=== PATIENT | female | born 1990 | race Caucasian/White ===

== ENCOUNTER 2016-09-08 10:38 | Emergency (ER) | payer MEDICAID ==
[~2016-09-08] VITALS: Ht 160 cm; Wt 64.1 kg
[~2016-09-08 10:38] MED LIST: ACET325T51 PO; IBUP-1724 PO; MEDR150V SQ; PREN1TAB75 PO
[2016-09-08 10:40] VITALS: Ht 160 cm; Wt 64.1 kg
--- OUTSIDE RECORDS SUMMARY | 2016-09-08 10:42 | XMS REPORT | Continuity of Care Document ---
Author Author [facility] Organization [facility] Address Unknown Phone Unavailable Care Team Providers Care Sap Hana Developer Name Role Phone HODA FERRARI MD Primary Care Physician [phone] Insurance Providers Guarantor Jayleen Marin Address [address] [place] [address] Email [email or web address] Payer [facility] Community Plan Policy Number [id number] Subscriber's Name MarinJayleen horton Jodee Relationship 18 Self Effective Date 16 Expiration Date 16 Payer Auto A Insurance Subscriber's Name MarinJayleen Jodee Relationship 18 Self Advance Directives Directive Response Recorded Date/Time Advanced Directives Type None 06/08/16 6:57pm Chief Complaint and Reason for Visit Chief Complaint Upper Extremity Injury Reason for Visit Contusion, hand Problems Active Problems Medical Problem Onset Date Status Acute URI Unknown Acute Acute thoracic myofascial strain Unknown Acute Colitis due to Escherichia coli Unknown Acute Costochondritis Unknown Acute Costochondritis Unknown Acute Dehydration Unknown Acute Frequent urination Unknown Acute Infectious mononucleosis Unknown Acute Infectious mononucleosis Unknown Acute Intrauterine growth restriction, antepartum 03/05/2014 Acute Irregular menses Unknown Acute Lumbar pain Unknown Acute Lumbar strain Unknown Acute Muscle strain of forearm Unknown Acute Pelvic pain affecting in first trimester, antepartum Unknown Acute Unknown Acute Sacro-iliac pain Unknown Acute Status post normal vaginal delivery Unknown Travelers' diarrhea Unknown Acute Upper respiratory infection Unknown Acute Past Problems Medical Problem Onset Date Ankle pain, right Unknown Cellulitis Unknown Contusion, hand Unknown Dental abscess Unknown Dental infection Unknown Foot pain, left Unknown Hand injury Unknown Hand sprain Unknown Pain, dental Unknown Sprain of right little finger Unknown Strain of shoulder, right Unknown Medications Current Home Medications Medication Dose Units Route Directions Days Qty Instructions Start Date Acetaminophen 325 Mg Tablet 2 Tab Oral Every 6 Hours as needed for Pain 06/08/16 Ibuprofen 200 Mg Tablet 2 Tab Oral Every 4 Hours as needed for Pain 06/08/16 Medroxyprogesterone Acetate (Depo-Provera) 150 Mg/1 Ml Vial 1 Ml Sub-Q Every 3 Minutes 02/05/16 Vits W-Ca,Fe,Fa(<1MG) ( Formula) 1 Each Tablet 1 Tab Oral Daily 03/03/15 Past Home Medications Medication Directions Ordered Status Cyclobenzaprine Hcl 10 Mg Tablet, 10 Mg Oral Three Times A Day as needed for Muscle Spasm 12/26/14 Discontinued Cyclobenzaprine Hcl 10 Mg Tablet, 1 Tab Oral Three Times A Day for Muscle Spasm 01/09/15 Discontinued Diclofenac Sodium 75 Mg Tablet.dr, 75 Mg Oral Twice Daily With Meals Discontinued Diclofenac Sodium 75 Mg Tablet.dr, 1 Tab Oral Twice A Day Breakfast & Supper 01/09/15 Discontinued Lortab , Oral As Needed 07/11/11 Discontinued Naproxen Sodium (Aleve) 220 Mg Tablet, 220 Mg Oral As Needed 07/11/11 Discontinued Social History Social History Problem Response Recorded Date/Time Onset Date Status Hx Substance Use No 06/08/2016 6:57pm Not Applicable Not Applicable Hx Alcohol Use N DENIES SINCE 12/201406/08/2016 6:57pm Not Applicable Not Applicable Has the pt used tobacco in the last 12 months No 10/09/2015 2:28am Not Applicable Not Applicable Tobacco Usage none 06/14/2014 8:54pm Not Applicable Not Applicable Query Response Start Date Stop Date Smoking Status Never smoker Hospital Discharge Instructions No hospital discharge instructions. Plan of Care Discharge Date 06/08/16 7:47pm Disposition 01 DISCHARGED HOME, SELF-CARE Condition at Discharge Improved Instructions/Education Provided Contusion in Adults (ED) Prescriptions See Medication Section Referrals HODA FERRARI MD Order Date: 1 Week Address: [address] [place] [address] Note: PORFIRIO MUNGUIA APRN Address: [address] [place] [address] [phone] Note: Additional Instructions/Education You have a bruised hand. Use ice, tylenol, and motrin as needed for pain. Follow up with your doctor next week. Care Plan and Goals Physician Care Plan Problem: Hand contusion Goal: Follow up with primary care provider Instructions: Take medications and follow care plan as discussed/written Functional Status No functional status results. Allergies, Adverse Reactions, Alerts Allergen Type Severity Reaction Status Last Updated Peanuts Allergy Unknown Active 06/08/16 Immunizations Query Response on File Recorded Date/Time Hx Influenza Vaccination Y 03/29/15 04/17/15 7:10pm Hx Pneumococcal Vaccination No 04/17/15 7:10pm Hx Tetanus, Diptheria, Pertussis Y 02/10/2014 01/27/15 3:01am Hx Influenza Vaccination Y 03/29/15 04/17/15 7:10pm Hx Tetanus Diptheria No 10/31/15 9:38pm Hx Tetanus, Diptheria, Pertussis Y 02/10/2014 01/27/15 3:01am Hx Tetanus Toxoid Vaccination No 10/31/15 9:38pm Influenza Vaccine Hx 05/201506/08/16 6:57pm Tdap Vaccine Hx UTD PER PT 04/07/16 10:45pm Vital Signs Acute Vital Signs Vital Response Date/Time Temperature (Fahrenheit) 98.3 deg F (96.8 - 99.1) 06/08/2016 7:47pm Temperature (Calculated Celsius) 36.27071 degrees C (36.0 - 37.3) 06/08/2016 7:47pm Pulse Rate (adult) 92 bpm (60 - 100) 06/08/2016 7:47pm Respiratory Rate 20 breaths/min (10 - 20) 06/08/2016 7:47pm O2 Sat by Pulse Oximetry 97 % (90 - 100) 06/08/2016 7:47pm Blood Pressure 109/63 mm Hg 06/08/2016 7:47pm Height (Feet) 5 feet 06/08/2016 6:57pm Height (Inches) 3.00 inches 06/08/2016 6:57pm Weight (Kilograms) 59.700 kg 06/08/2016 6:57pm Body Mass Index (BMI) 23.0 06/08/2016 6:57pm Results No known relevant diagnostic tests, laboratory data and/or discharge summary. Procedures Procedure Status Date Provider(s) X-ray exam of ankle Completed 04/07/16 Emergency dept visit Completed 04/07/16 Encounters Encounter Location Arrival/Admit Date Discharge/Depart Date Attending Provider Departed Emergency Room [facility] 06/08/16 6:52pm 06/08/16 7: 47pm SEPTEMBERSHANTI DO Departed Emergency Room [facility] 04/07/16 10:30pm 04/07/16 11: 08pm YESENIA TOLEDO MD Recent Diagnosis
--- NOTE | 2016-09-08 10:48 | NUR ---
PHYSICIAN VISIT DR. MARTINEZ IN TO SEE PATIENT.
--- NOTE | 2016-09-08 10:56 | NUR ---
X-RAY X-RAY AT BEDSIDE TO PERFORM PORTABLE.
--- NOTE | 2016-09-08 10:59 | ERPDOC ---
Departure Disposition Decision Date: Sep 08, 2016 Disposition Decision Time: 11:07 Disposition: 01 DISCHARGED HOME, SELF-CARE Impression Impression: 1) ANKLE SPRAIN 2) FALL Impression: Primary Impression: Ankle sprain Encounter type: initial encounter Involved ligament of ankle: unspecified ligament Laterality: right Qualified Codes: S93.401A - Sprain of unspecified ligament of right ankle, initial encounter Condition: Stable Seen By: Physician only Referrals: HODA FERRARI MD (PCP) PORFIRIO MUNGUIA APRN (Family) 2 Weeks FOLLOW UP IN NEXT 1-2 WEEKS FOR RE-EVALUATION IF PAIN PERSISTS Patient Instructions: Ankle Sprain (ED) Problems/Meds/Labs Reviewed?: Yes Medications reviewed and manag: Yes Additional Instructions: 1) CONTINUE TO ICE AND ELEVATE INJURED ANKLE FOR NEXT 24 HOURS. 2) UTILIZE AIR SPLINT AND CRUTCHES TO PROVIDE SUPPORT AND HELP WITH PAIN WITH WEIGHT BEARING FOR NEXT SEVERAL DAYS. 3) MAY TAKE OVER THE COUNTER ANALGESICS AND ANTI-INFLAMMATORIES SUCH ACETAMINOPHEN OR IBUPROFEN DIRECTED NEEDED FOR DISCOMFORT 4) FOR SEVERE PAIN MAY TAKE TYLENOL #3 5) FOLLOW UP WITH PCP IN NEXT 1-2 WEEKS IF PAIN PERSISTS Departure Forms: Return to Work/School Permit Return to Work/School Date: September 10, 2016 Follow up care ordered?: Yes Mental Status: Alert Scripts Acetaminophen with Codeine (Tylenol with Codeine #3 Tablet) 300-30 Tablet 1 TAB-CAP PO Q6H for PAIN, #20 TAB-CAP 0 Refills Prov: ALFREDITO MARTINEZ MD 09/08/16 HPI General Chief Complaint: Lower Extremity Injury Stated Complaint: FALL/KNEE AND ANKLE PAIN Time Seen by Provider: 10:44 Source: patient Exam Limitations: no limitations HPI Foot/Ankle Initial Comments 25 YO WF who presents to ER for right knee and ankle pain. Patient reportedly missed a step and fell twisting her ankle last night. She now reports pain in her right knee and ankle. No swelling in knee. She has been applying ice to ankle. She has not taken any over the counter analgesics or anti-inflammatory for the pain. Occurred At: home Pain Scale: Now: 5/10 Location: right: ankle 1 - area of pain Method of Injury: fell, twisted Associated Symptoms: pain with standing, swelling Allergies: Coded Allergies: peanut (Verified Allergy, Unknown, 09/08/16) Past History Patient Surgical History epidural Past Medical History Respiratory: asthma Female: kidney stones Surgical History Joint: knee Family History Family PMH: FOUND: [place], diabetes, hypertension, other Vaccines Hx Influenza Vaccination: Yes (03/29/15) Hx Pneumococcal Vaccination: No Hx Tetanus Diptheria: No Hx Tetanus, Diptheria, Pertuss: Yes (02/10/2014) Social History Does patient use chewing tobac: No Second Hand Exposure: No Substance Use Type: does not use Alcohol Intake: none Sexuality: male partner Household Members: family Review of Systems Constitutional Constitutional: DENIES: appetite decrease, chills, dizziness, fever, weakness Eyes General: DENIES: erythema, exudate, photophobia Vision: DENIES: blurring ENMT Sinuses: DENIES: congestion Nose: DENIES: nosebleeds Mouth/Throat: DENIES: painful swallowing, sore throat Cardiovascular Rhythm/Rate: DENIES: irregular beat, palpitations Pulmonary Respiratory: DENIES: dyspnea GI Upper Abdomen: DENIES: nausea, vomiting Lower Abdomen: DENIES: diarrhea General: DENIES: burning, dysuria, frequency, pain, urgency Integumentary Skin: DENIES: rash Neurological General: DENIES: dysarthria, headache, numbness, seizures, syncope, weakness Hematologic/Lymphatic Hematologic/Lymphatic: DENIES: anemia, easy bruising Exam General General Nourishment: well nourished, well developed, appears stated age Vital Signs: RN Vital Signs have been reviewed: Yes Height (Feet): 5 Height (Inches): 3.00 Fastrak Foot/Ankle Foot/Ankle : Leg: Right Leg: NOT FOUND: deformity, discoloration, swelling, tender Ankle: tender lat. foot, tender lat. malleolus, NOT FOUND: anterior drawer sign, decreased ROM, deformity, ecchymosis, foot drop Toes: NOT FOUND: decreased ROM, subungual hematoma Posterior Tibial Pulse: 2+ Dorsalis Pedis Pulse: 2+ Eyes (brief) Eyes Brief: found: EOMI, PERRL, not found: scleral icterus Respiratory (brief) Respiratory Brief: FOUND: clear all stewart, equal bilaterally, NOT FOUND: rales , wheezes Cardiovascular (brief) Cardiac Brief: FOUND: regular rate, regular rhythm, NOT FOUND: pedal edema Capillary Refill: <2 sec Abdomen (brief) Abdominal Brief: FOUND: bowel normo active x4, soft, NOT FOUND: distended, hepatosplenomegaly, tender Integumentary (brief) Integumentary Brief: FOUND: dry, warm, NOT FOUND: rash Neurologic (brief) Neurological Brief: FOUND: CN w/o gross def to obs, motor-no gross deficits, sensory-no gross deficits Neurologic Mental Status: FOUND: alert, oriented GCS Eye Opening: (4)Spontaneous GCS Verbal: (5)Oriented GCS Motor: (6)Obeys Commands RN Documented GCS Eye Opening: Verbal: Motor: Total: Psychiatric (brief) Psychiatric Brief: FOUND: alert, attentive, normal affect, oriented Differential Diagnoses Considering: Contusion, Fracture, Sprain, Strain Progress Results/Orders Orders Procedure Category Date Status Time Ankle Right 3 View RAD 09/08/16 Taken 10:53 Premade Splint EDM 09/08/16 Transmitted 11:06 Crutches EDM 09/08/16 Transmitted 11:06 Xray Xray : Xray: Ankle R (No fracture, dislocation or acute bony abnormality) Interpretation: Interpreted by ALFREDITO Covarrubias MD Sep 08, 2016 10:59
[2016-09-08] MEDS ORDERED: No home meds. (11:02)
[2016-09-08] MEDS ORDERED: ACET1TAB12 PO (11:13)
[2016-09-08 11:45] VITALS: BP 114/75; PULSE 85; RESP 16; TEMP 98.2; O2SAT 98
--- NOTE | 2016-09-08 11:45 | NUR ---
DISCHARGED AMB WELL ON CRUTCHES
--- NOTE | 2016-09-09 09:40 | DI ---
Indication: ITS.REASON: Fall, Lateral ankle pain PROCEDURE: ANKLE RIGHT 3 VIEW: Encounter: Initial Comparison: April 07, 2016 Findings: There is no acute fracture, dislocation or malalignment identified. Impression: No acute osseous abnormality. .
== END 2016-09-08 11:45 | disposition home or self-care (01) ==
LOC: ED 10:38
DX: S93.401A Sprain of unspecified ligament of right ankle, initial encounter (principal); M25.561 Pain in right knee; W10.8XXA Fall (on) (from) other stairs and steps, initial encounter; Y93.9 Activity, unspecified; Y92.008 Other place in unspecified non-institutional (private) residence as the place of occurrence of the external cause; Y99.8 Other external cause status

== ENCOUNTER 2016-09-11 23:16 | Emergency (ER) | payer MEDICAID ==
[~2016-09-11] VITALS: Ht 160 cm; Wt 64.3 kg
[2016-09-11 23:16] VITALS: Ht 160 cm; Wt 64.3 kg
[~2016-09-11 23:16] MED LIST changes: +ACET1TAB12 PO; -ACET325T51 PO; -IBUP-1724 PO; -MEDR150V SQ; +No home meds.; -PREN1TAB75 PO
--- OUTSIDE RECORDS SUMMARY | 2016-09-11 23:19 | XMS REPORT | Continuity of Care Document ---
Author Author [facility] Organization [facility] Address Unknown Phone Unavailable Care Team Providers Care District Court Administrator Name Role Phone HODA FERRARI MD Primary Care Physician [phone] Insurance Providers Guarantor TomasJayleen D Address [address] [place] [address] Email [email or web address] Payer [facility] Community Plan Policy Number [id number] Subscriber's Name Jayleen Nicolas Relationship 18 Self Effective Date 16 Expiration Date 16 Advance Directives Directive Response Recorded Date/Time Advanced Directives Type None 09/08/16 10:40am Chief Complaint and Reason for Visit Chief Complaint Lower Extremity Injury Reason for Visit Ankle sprain Problems Active Problems Medical Problem Onset Date Status Acute URI Unknown Acute Acute thoracic myofascial strain Unknown Acute Ankle sprain Unknown Acute Colitis due to Escherichia coli [...] Directions Days Qty Instructions Start Date Acetaminophen With Codeine (Tylenol With Codeine #3 Tablet) 300-30 Tablet 1 Tab-Cap Oral Every 6 Hours for Pain 20 Tablet-Capsule 09/08/16 No Home Meds. 09/08/16 Past Home Medications Medication Directions Ordered Status Acetaminophen 325 Mg Tablet, 2 Tab Oral Every 6 Hours as needed for Pain Discontinued Cyclobenzaprine Hcl 10 Mg Tablet, 10 Mg [...] A Day Breakfast & Supper 01/09/15 Discontinued Ibuprofen 200 Mg Tablet, 2 Tab Oral Every 4 Hours as needed for Pain Discontinued Lortab , Oral As Needed 07/11/11 Discontinued Medroxyprogesterone Acetate (Depo-Provera) 150 Mg/1 Ml Vial, 1 Ml Sub-Q Every 3 Minutes 02/05/16 Discontinued Naproxen Sodium (Aleve) 220 Mg Tablet, 220 Mg Oral As Needed 07/11/11 Discontinued Vits W-Ca,Fe,Fa(<1MG) ( Formula) 1 Each Tablet, 1 Tab Oral Daily 03/03/15 Discontinued Social History Social History Problem Response Recorded Date/Time Onset Date Status Hx Substance Use No 09/08/2016 10:48am Not Applicable Not Applicable Hx Alcohol Use Y OCCASIONAL 09/08/2016 10:48am Not Applicable Not Applicable Has the pt used tobacco in the last 12 months No 10/09/2015 2:28am Not Applicable Not Applicable Tobacco Usage none 06/14/2014 8:54pm Not Applicable Not Applicable Query Response Start Date Stop Date Smoking Status Never smoker Hospital Discharge Instructions No hospital discharge instructions. Plan of Care Discharge Date 09/08/16 11:45am Disposition 01 DISCHARGED HOME, SELF-CARE Condition at Discharge Stable Instructions/Education Provided Ankle Sprain (ED) Forms Provided Return to Work/School Permit Prescriptions See Medication Section Referrals HODA FERRARI MD Address: [address] [address] Note: PORFIRIO MUNGUIA APRN Order Date: 2 Weeks Address: [address] [phone] Note: FOLLOW UP IN NEXT 1-2 WEEKS FOR RE-EVALUATION IF PAIN PERSISTS Additional Instructions/Education 1) CONTINUE TO ICE AND ELEVATE INJURED ANKLE FOR NEXT 24 HOURS. 2) UTILIZE AIR SPLINT AND CRUTCHES TO PROVIDE SUPPORT AND HELP WITH PAIN WITH WEIGHT BEARING FOR NEXT SEVERAL DAYS. 3) MAY TAKE OVER THE COUNTER ANALGESICS AND ANTI-INFLAMMATORIES SUCH ACETAMINOPHEN OR IBUPROFEN DIRECTED NEEDED FOR DISCOMFORT 4) FOR SEVERE PAIN MAY TAKE TYLENOL #3 5) FOLLOW UP WITH PCP IN NEXT 1-2 WEEKS IF PAIN PERSISTS Care Plan and Goals Physician Care Plan Problem: 1) ANKLE SPRAIN Goal: Follow up with primary care provider 1) DR. FERRARI OR [facility] IN 1-2 WEEKS IF PAIN PERSISTS Instructions: Take medications and follow care plan as discussed/written Functional Status No functional status results. Allergies, Adverse Reactions, Alerts Allergen Type Severity Reaction Status Last Updated Peanuts Allergy Unknown Active 09/08/16 Immunizations Query Response on File Recorded Date/Time Hx Influenza Vaccination Y 03/29/15 04/17/15 7:10pm Hx Pneumococcal Vaccination No 04/17/15 7:10pm Hx Tetanus, Diptheria, Pertussis Y 02/10/2014 01/27/15 3:01am Hx Influenza Vaccination Y 03/29/15 04/17/15 7:10pm Hx Tetanus Diptheria No 10/31/15 9:38pm Hx Tetanus, Diptheria, Pertussis Y 02/10/2014 01/27/15 3:01am Hx Tetanus Toxoid Vaccination No 10/31/15 9:38pm Influenza Vaccine Hx 05/201509/08/16 10:48am Tetanus Diptheria Vaccine History UTD 09/08/16 10:48am Tdap Vaccine Hx NO OPEN WOUND 09/08/16 11:45am Vital Signs Acute Vital Signs Vital Response Date/Time Temperature (Fahrenheit) 98.2 deg F (96.8 - 99.1) 09/08/2016 11:45am Temperature (Calculated Celsius) 36.07855 degrees C (36.0 - 37.3) 09/08/2016 11:45am Pulse Rate (adult) 85 bpm (60 - 100) 09/08/2016 11:45am Respiratory Rate 16 breaths/min (10 - 20) 09/08/2016 11:45am O2 Sat by Pulse Oximetry 98 % (90 - 100) 09/08/2016 11:45am Blood Pressure 114/75 mm Hg 09/08/2016 11:45am Height (Feet) 5 feet 09/08/2016 10:40am Height (Inches) 3.00 inches 09/08/2016 10:40am Weight (Kilograms) 64.100 kg 09/08/2016 10:40am Body Mass Index (BMI) 25.0 09/08/2016 10:40am Results No known relevant diagnostic tests, laboratory data and/or discharge summary. Procedures No known history of procedures. Encounters Encounter Location Arrival/Admit Date Discharge/Depart Date Attending Provider Departed Emergency Room [facility] 09/08/16 10:38am 09/08/16 11: 45am ALFREDITO MARTINEZ MD Recent Diagnosis
[2016-09-11] MEDS ORDERED: PredniSONE 10 MG TABLET PO ONE (23:30)
--- NOTE | 2016-09-11 23:30 | ERPDOC ---
Departure Disposition Decision Date: September 11, 2016 Disposition Decision Time: 23:35 (SHAYNE BLISS APRN) Disposition: 01 DISCHARGED HOME, SELF-CARE Impression Impression (SHAYNE BLISS APRN) Impression: Primary Impression: Skin rash Condition: Stable Seen By: Mid-level only (SHAYNE BLISS APRN) Referrals: PORFIRIO MUNGUIA APRN (Family) Patient Instructions: Acute Rash (ED) Problems/Meds/Labs Reviewed?: Yes Medications reviewed and manag: Yes (SHAYNE BLISS APRN) Additional Instructions: 1. Take Benadryl 50 mg every 6 hours as needed for rash/itching. 2. Avoid scratching rash. you may try applying witch gopi to rash to soothe the rash 3. Stop taking Tylenol #3. You can resume taking plain Tylenol and Ibuprofen as needed for pain 4. Follow up with your primary care doctor Follow up care ordered?: Yes Mental Status: Alert, Oriented (SHAYNE BLISS APRN) HPI - Skin General General Chief Complaint: Skin Rash/Abscess Stated Complaint: RASH ALL OVER,SWOLLEN R ANKLE Time Seen by Provider: 23:28 Source: patient, family (MOTHER) Exam Limitations: no limitations (SHAYNE BLISS APRN) Time Seen by Provider: 23:28 (NIEVES WOMACK DO) HPI - Skin General Initial Comments Jayleen is a 25 year old female who comes to ER at 2330 with cc: rash all over body starting today. Seen in ER on 09/06 for ankle sprain and started on Tylenol #3 prn. Feels like she developed a rash secondary to the T3. Rash itchy and all over trunk, bottom, arms and legs. Denies any other possible allergen. Did not take anything at home, "didn't have anything to take." Denies shortness of air or trouble swallowing. Onset: Gradual Duration: 12-24 hrs Location: generalized Possible Cause: medications Modifying Factors: IMPROVES WITH: scratching Associated Symptoms: rash (SHAYNE BLISS APRN) Allergies: Coded Allergies: peanut (Verified Allergy, Unknown, 09/08/16) Past History Patient Surgical History epidural (SHAYNE BLISS APRN) Past Medical History Respiratory: asthma Female: kidney stones (SHAYNE BLISS APRN) Surgical History Joint: knee (SHAYNE BLISS APRN) Family History Family PMH: FOUND: [place], diabetes, hypertension, other (SHAYNE BLISS APRN) Vaccines Hx Influenza Vaccination: Yes (03/29/15) Hx Pneumococcal Vaccination: No Hx Tetanus Diptheria: No Hx Tetanus, Diptheria, Pertuss: Yes (02/10/2014) (SHAYNE BLISS APRN) Social History Does patient use chewing tobac: No Second Hand Exposure: No Substance Use Type: does not use Alcohol Intake: none Sexuality: male partner Household Members: family (SHAYNE BLISS APRN) Review of Systems Constitutional Constitutional: DENIES: fever (SHAYNE BLISS APRN) ENMT Mouth/Throat: DENIES: painful swallowing, sore throat (SHAYNE BLISS APRN) Cardiovascular Cardiac: DENIES: chest pain (SHAYNE BLISS APRN) Pulmonary Respiratory: DENIES: dyspnea (SHAYNE BLISS APRN) Integumentary Skin: itching, rash (SHAYNE BLISS APRN) All other Systems All Other Systems: Reviewed and Negative (SHAYNE BLISS APRN) Physical Exam General General Nourishment: well nourished, well developed, appears stated age, no acute distress (SHAYNE BLISS APRN) Vitals and Pain First Documented Vital Signs Date Time Temp Pulse Resp B/P Pulse Ox O2 Delivery O2 Flow Rate FiO2 09/11/16 23:16 98.7 87 18 138/84 98 Room Air (NIEVES WOMACK DO) Vitals and Pain Weight: Kilograms: Height (feet): 5 Height (inches): 3.00 Triage Pain Scale: (SHAYNE BLISS APRN) ENMT (brief) ENMT Brief: FOUND: mucosa moist (SHAYNE BLISS APRN) Respiratory (brief) Respiratory: FOUND: clear all stewart, equal bilaterally (SHAYNE BLISS APRN) Cardiovascular (brief) Cardiac: FOUND: regular rate, regular rhythm (SHAYNE BLISS APRN) Integumentary (brief) Integumentary Brief: FOUND: dry, pink, rash (generalized pink maculopapular rash ), warm (SHAYNE BLISS APRN) Psychiatric (brief) Psychiatric Brief: FOUND: alert, attentive, normal affect, oriented (SHAYNE BLISS APRN) Differential Diagnoses Considering: Hives/Urticaria, Pityriasis Rosea, Scabies, Viral Exanthem (SHAYNE BLISS APRN) Progress Results/Orders Orders Procedure Category Date Status Time Diphenhydramine PHA 09/11/16 Complete (Benadryl) 23:30 Prednisone PHA 09/11/16 Complete (Prednisone) 23:30 (NIEVES WOMACK DO) Medications Current ED Medications Diphenhydramine HCl (Benadryl) 50 mg O ONCE PO Last administered on 09/11/16 23:43; Start 09/11/16 at 23:30; Stop 09/11/16 at 23:31; Status DC Prednisone (PredniSONE) 40 mg O ONCE PO Last administered on 09/11/16 23:46; Start 09/11/16 at 23:30; Stop 09/11/16 at 23:31; Status DC (NIEVES WOMACK DO) SHAYNE BLISS APRN September 11, 2016 23:30 NIEVES WOMACK DO September 11, 2016 23:50
[2016-09-11 23:45] VITALS: BP 164/75; PULSE 76; RESP 18; TEMP 97.2; O2SAT 97
--- NOTE | 2016-09-11 23:45 | NUR ---
DEPART PT IS GIVEN DISMISSAL INSTRUCTIONS WITH VERBAL UNDERSTANDING. PT REPORTS HAVING NO BENADRYL AT HOME, BUT PT UNDERSTANDS SHE WILL NEED TO GET BENADRYL FROM THE STORE TO HELP THE ITCHING FROM HER RASH. PT ALSO UNDERSTANDS SHE WILL NEED TO FOLLOW UP WITH [facility]. PT LEAVES [facility] TO ED EXIT
== END 2016-09-11 23:45 | disposition home or self-care (01) ==
LOC: ED 23:16
DX: R21 Rash and other nonspecific skin eruption (principal)
CPT/HCPCS: 99283; J7512

== ENCOUNTER 2016-09-22 10:17 | Emergency (ER) | payer MEDICAID ==
[~2016-09-22] VITALS: Ht 160 cm; Wt 65.0 kg
[~2016-09-22 10:17] MED LIST changes: -ACET1TAB12 PO
[2016-09-22 10:20] VITALS: Ht 160 cm; Wt 65.0 kg
--- OUTSIDE RECORDS SUMMARY | 2016-09-22 10:21 | XMS REPORT | Continuity of Care Document ---
Author Author [facility] Organization [facility] Address Unknown Phone Unavailable Care Team Providers Care Math Specialist Name Role Phone HODA FERRARI MD Primary Care Physician [phone] Insurance Providers Guarantor TomasJayleen Jodee Address [address] [place] [address] Email [email or web address] Payer [facility] Community Plan Policy Number [id number] Subscriber's Name Jayleen Nicolas Relationship 18 Self Effective Date 16 Expiration Date 16 Chief Complaint and Reason for Visit Chief Complaint Skin Rash/Abscess Reason for Visit [id number] Problems Active Problems Medical Problem Onset Date [...] Problem Onset Date Ankle pain, right Unknown Ankle sprain Unknown Cellulitis Unknown Contusion, hand Unknown Dental abscess Unknown Dental infection Unknown Foot pain, left Unknown Hand injury Unknown Hand sprain Unknown Pain, dental Unknown Skin rash Unknown Sprain of right little finger Unknown Strain of shoulder, right Unknown Medications Current Home Medications Medication Dose Units Route Directions Days Qty Instructions Start Date No Home Meds. 09/08/16 Past Home Medications Medication Directions Ordered Status Acetaminophen 325 Mg Tablet, 2 Tab Oral Every 6 Hours as needed for Pain Discontinued Acetaminophen With Codeine (Tylenol With Codeine #3 Tablet) 300-30 Tablet, 1 Tab-Cap Oral Every 6 Hours for Pain 09/08/16 Discontinued Cyclobenzaprine Hcl 10 Mg Tablet, 10 [...] Onset Date Status Hx Substance Use No 09/11/2016 11:39pm Not Applicable Not Applicable Hx Alcohol Use Y OCCASIONAL 09/11/2016 11:39pm Not Applicable Not Applicable Has the pt used tobacco in the last 12 months No 10/09/2015 2:28am Not Applicable Not Applicable Tobacco Usage none 06/14/2014 8:54pm Not Applicable Not Applicable Query Response Start Date Stop Date Smoking Status Unknown if ever smoked Hospital Discharge Instructions No hospital discharge instructions. Plan of Care Discharge Date 09/11/16 11:45pm Disposition 01 DISCHARGED HOME, SELF-CARE Condition at Discharge Stable Instructions/Education Provided Acute Rash (ED) Prescriptions See Medication Section Referrals PORFIRIO MUNGUIA APRN Address: [address] [place] [phone] Note: Additional Instructions/Education 1. Take Benadryl 50 mg every 6 hours as needed for rash/itching. 2. Avoid scratching rash. you may try applying witch gopi to rash to soothe the rash 3. Stop taking Tylenol #3. You can resume taking plain Tylenol and Ibuprofen as needed for pain 4. Follow up with your primary care doctor Functional Status No functional status results. Allergies, [...] Vaccination No 10/31/15 9:38pm Influenza Vaccine Hx 05/201509/11/16 11:39pm Tetanus Diptheria Vaccine History UTD 09/11/16 11:39pm Tdap Vaccine Hx NO OPEN WOUND 09/08/16 11:45am Vital Signs Acute Vital Signs Vital Response Date/Time Temperature (Fahrenheit) 97.2 deg F (96.8 - 99.1) 09/11/2016 11:45pm Temperature (Calculated Celsius) 36.44802 degrees C (36.0 - 37.3) 09/11/2016 11:45pm Pulse Rate (adult) 76 bpm (60 - 100) 09/11/2016 11:45pm Respiratory Rate 18 breaths/min (10 - 20) 09/11/2016 11:45pm O2 Sat by Pulse Oximetry 97 % (90 - 100) 09/11/2016 11:45pm Blood Pressure 164/75 mm Hg 09/11/2016 11:45pm Height (Feet) 5 feet 09/11/2016 11:16pm Height (Inches) 3.00 inches 09/11/2016 11:16pm Weight (Kilograms) 64.300 kg 09/11/2016 11:16pm Body Mass Index (BMI) 25.0 09/11/2016 11:16pm Results No known relevant diagnostic tests, laboratory data and/or discharge summary. Procedures Procedure Status Date Provider(s) X-ray exam of ankle Completed 09/08/16 Emergency dept visit Completed 09/08/16 Encounters Encounter Location Arrival/Admit Date Discharge/Depart Date Attending Provider Departed Emergency Room [facility] 09/11/16 11:16pm 09/11/16 11: 45pm NIEVES WOMACK DO Departed Emergency Room [facility] 09/08/16 10:38am 09/08/16 11: 45am ALFREDITO MARTINEZ MD Recent Diagnosis
--- NOTE | 2016-09-22 10:34 | ERPDOC ---
Departure Disposition Decision Date: September 22, 2016 Disposition Decision Time: 12:21 Disposition: 01 DISCHARGED HOME, SELF-CARE Impression Impression Impression: Primary Impression: Anxiety Additional Impression: Panic attack Severity: Moderate Condition: Improved Seen By: Physician only Referrals: HODA FERRARI MD (PCP) PORFIRIO MUNGUIA APRN (Family) Patient Instructions: Anxiety (ED) Problems/Meds/Labs Reviewed?: Yes Medications reviewed and manag: Yes Additional Instructions: Hydroxyzine 10 mg twice daily as needed for acute panic attacks. Follow up with [facility] on Saturday to get a prescription for chronic anxiety. Stay home from work today and tomorrow. Follow up care ordered?: Yes Mental Status: Alert Scripts Hydroxyzine HCl (Hydroxyzine HCl) 10 Mg Tablet 1 TAB PO BID Y for ANXIETY/AGITATION, #30 TAB Prov: LUCHO HOPE MD 09/22/16 HPI - Psychosocial General Chief Complaint: Psychiatric Problems Stated Complaint: PANIC ATTACK Time Seen by MD: 10:32 HPI - Psychosocial Initial Comments 26-year-old female with panic attack. Patient has a 1-year-old baby and a 3-year -old. She was taken off of her psychiatric medication when she was and breast-feeding, she just finished breast-feeding and is having a panic attack currently. As we talked, it sounds like she is on more of a long-term preventative type medication rather than short-term benzo. She does her medication through [facility]. No suicidal ideation. Allergies: Coded Allergies: peanut (Verified Allergy, Unknown, 09/22/16) Past History Patient Surgical History epidural Past Medical History Respiratory: asthma Female: kidney stones Psychological: anxiety Surgical History Joint: knee Family History Family PMH: FOUND: [place], diabetes, hypertension, other Vaccines Hx Influenza Vaccination: Yes (03/29/15) Hx Pneumococcal Vaccination: No Hx Tetanus Diptheria: No Hx Tetanus, Diptheria, Pertuss: Yes (02/10/2014) Social History Smoking Status: Never smoker Does patient use chewing tobac: No Second Hand Exposure: No Substance Use Type: does not use Alcohol Intake: none Sexuality: male partner Household Members: family Record Review Pertinent history updated: Yes Review of Systems Psychiatric Psychiatric: see HPI All other Systems All Other Systems: Reviewed and Negative Physical Exam General General Nourishment: well nourished, well developed, appears stated age Distress Description Patient is crying Vitals and Pain First Documented Vital Signs Date Time Temp Pulse Resp B/P Pulse Ox O2 Delivery O2 Flow Rate FiO2 09/22/16 10:20 98.3 84 18 120/83 98 Room Air Weight: Kilograms: Height (feet): 5 Height (inches): 3.00 Triage Pain Scale: Normal Exams: Head: Normocephalic w/o trauma Chest/Resp: Clear all stewart, with good airflow, and symmetry bilaterally CV: Regular rate and rhythm, without murmur or gallop, Pulses 2+ all extremities, capillary refill, <2 seconds all ext., no pedal edema noted Neurologic: Patient is alert, and oriented, cranial nerves, motor/sensory/ cerebellar, exams w/o gross deficits, to observation Differential Diagnoses Considering: Other (depression, anxiety, panic attack) Progress Results/Orders Orders Procedure Category Date Status Time Hydroxyzine (Atarax) PHA 09/22/16 Complete 10:45 Medications Current ED Medications Hydroxyzine HCl (Atarax) 10 mg O ONCE PO Last administered on 09/22/16t 10:41 ; Start 09/22/16 at 10:45; Stop 09/22/16 at 10:46; Status DC Progress Progress Patient had good result with hydroxyzine 10 mg by mouth. Symptoms have improved , she is a little bit tired, but the panic attack is resolved. Stretcher with a prescription for hydroxyzine to be used when necessary. She will follow-up with psychology at [facility] on Saturday. I did ask her to stay home from work tomorrow. LUCHO HOPE MD September 22, 2016 10:34
[2016-09-22] MEDS ORDERED: DIPH25CA84 PO (10:39)
[2016-09-22] MEDS ORDERED: [UNRECOGNIZED DRUG - CODE] PO (12:27)
[2016-09-22 12:42] VITALS: BP 120/83; PULSE 84; RESP 18; TEMP 98.3; O2SAT 98
== END 2016-09-22 12:42 | disposition home or self-care (01) ==
LOC: ED 10:17
DX: F41.0 Panic disorder [episodic paroxysmal anxiety] (principal)

== ENCOUNTER 2016-09-24 23:04 | Emergency (ER) | payer MEDICAID ==
[~2016-09-24] VITALS: Ht 160 cm; Wt 64.8 kg
[2016-09-24 23:04] VITALS: Ht 160 cm; Wt 64.8 kg
[~2016-09-24 23:04] MED LIST changes: +DIPH25CA84 PO; +[UNRECOGNIZED DRUG - CODE] PO
--- OUTSIDE RECORDS SUMMARY | 2016-09-24 23:08 | XMS REPORT | Continuity of Care Document ---
Author Author [facility] Organization [facility] Address Unknown Phone Unavailable Care Team Providers Care Briar Cutter Name Role Phone HODA FERRARI MD Primary Care Physician [phone] Insurance Providers Guarantor TomasPerlaJayleen D Address [address] [place] [address] Email [email or web address] Payer [facility] Community Plan Policy Number [id number] Subscriber's Name Jayleen Nicolas Relationship 18 Self Effective Date 16 Expiration Date 16 Advance Directives Directive Response Recorded Date/Time Advanced Directives Type None 09/22/16 10:20am Chief Complaint and Reason for Visit Chief Complaint Psychiatric Problems Reason for Visit Anxiety Panic attack Problems Active Problems Medical Problem Onset Date [...] Ankle pain, right Unknown Ankle sprain Unknown Anxiety Unknown Cellulitis Unknown Contusion, hand Unknown Dental abscess Unknown Dental infection Unknown Foot pain, left Unknown Hand injury Unknown Hand sprain Unknown Pain, dental Unknown Panic attack Unknown Skin rash Unknown Sprain of right little finger Unknown Strain of shoulder, right Unknown Medications Current Home Medications Medication Dose Units Route Directions Days Qty Instructions Start Date Diphenhydramine Hcl (Benadryl) 25 Mg Capsule 50 Mg Oral Every 4 Hours as needed for Allery Symptoms 09/22/16 Hydroxyzine Hcl 10 Mg Tablet 1 Tab Oral Twice A Day as needed for Anxiety/ Agitation 30 Tablet 09/22/16 No Home Meds. 09/08/16 Past Home Medications [...] Problem Response Recorded Date/Time Onset Date Status Chewing Tobacco Status No 09/22/2016 10:20am Not Applicable Not Applicable Hx Substance Use No 09/22/2016 10:20am Not Applicable Not Applicable Hx Alcohol Use Y OCCASIONAL 09/22/2016 10:20am Not Applicable Not Applicable Has the pt used tobacco in the last 12 months No 10/09/2015 2:28am Not Applicable Not Applicable Tobacco Usage none 06/14/2014 8:54pm Not Applicable Not Applicable Query Response Start Date Stop Date Smoking Status Never smoker Hospital Discharge Instructions No hospital discharge instructions. Plan of Care Discharge Date 09/22/16 12:42pm Disposition 01 DISCHARGED HOME, SELF-CARE Condition at Discharge Improved Instructions/Education Provided Anxiety (ED) Prescriptions See Medication Section Referrals HODA FERRARI MD Address: [address] [place] [address] PORFIRIO MUNGUIA APRN Address: [address] [place] [address] [phone] Additional Instructions/Education Hydroxyzine 10 mg twice daily as needed for acute panic attacks. Follow up with [facility] on Saturday to get a prescription for chronic anxiety. Stay home from work today and tomorrow. Functional Status No functional status results. Allergies, Adverse Reactions, Alerts Allergen Type Severity Reaction Status Last Updated Peanuts Allergy Unknown Active 09/22/16 Immunizations Query Response on File Recorded Date/Time Hx Influenza Vaccination Y 03/29/15 04/17/15 7:10pm Hx Pneumococcal Vaccination No 04/17/15 7:10pm Hx Tetanus, Diptheria, Pertussis Y 02/10/2014 01/27/15 3:01am Hx Influenza Vaccination Y 03/29/15 04/17/15 7:10pm Hx Tetanus Diptheria No 10/31/15 9:38pm Hx Tetanus, Diptheria, Pertussis Y 02/10/2014 01/27/15 3:01am Hx Tetanus Toxoid Vaccination No 10/31/15 9:38pm Influenza Vaccine Hx 05/201509/22/16 10:20am Tetanus Diptheria Vaccine History UTD 09/22/16 10:20am Tdap Vaccine Hx NO OPEN WOUND 09/08/16 11:45am Vital Signs Acute Vital Signs Vital Response Date/Time Temperature (Fahrenheit) 98.3 deg F (96.8 - 99.1) 09/22/2016 12:42pm Temperature (Calculated Celsius) 36.84338 degrees C (36.0 - 37.3) 09/22/2016 12:42pm Pulse Rate (adult) 84 bpm (60 - 100) 09/22/2016 12:42pm Respiratory Rate 18 breaths/min (10 - 20) 09/22/2016 12:42pm O2 Sat by Pulse Oximetry 98 % (90 - 100) 09/22/2016 12:42pm Blood Pressure 120/83 mm Hg 09/22/2016 12:42pm Height (Feet) 5 feet 09/22/2016 10:20am Height (Inches) 3.00 inches 09/22/2016 10:20am Weight (Kilograms) 65.000 kg 09/22/2016 10:20am Body Mass Index (BMI) 25.0 09/22/2016 10:20am Results No known relevant diagnostic tests, laboratory data and/or discharge summary. Procedures Procedure Status Date Provider(s) X-ray exam of ankle Completed 09/08/16 Emergency dept visit Completed 09/08/16 Emergency dept visit Completed 09/11/16 PREDNISONE, 10 MG TAB Completed 09/11/16 Encounters Encounter Location Arrival/Admit Date Discharge/Depart Date Attending Provider Departed Emergency Room [facility] 09/22/16 10:17am 09/22/16 12: 42pm LUCHO HOPE MD Departed Emergency Room [facility] 09/11/16 11:16pm 09/11/16 11: 45pm NIEVES WOMACK DO Departed Emergency Room [facility] 09/08/16 10:38am 09/08/16 11: 45am ALFREDITO MARTINEZ MD Recent Diagnosis
[2016-09-24] MEDS ORDERED: NORMAL SALINE 1,000 ML IV ONE (23:15)
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
--- NOTE | 2016-09-25 00:17 | NUR ---
UP TO THE BATHROOM
[2016-09-25 00:25] LABS: ANION GAP 15 MEQ/L (5-15); BUN/CREATININE RATIO 22 RATIO (6-26); CALCIUM 9.4 MG/DL (8.4-10.2); CHLORIDE 112 MEQ/L (98-107); CO2 - CARBON DIOXIDE 17 MEQ/L (22-30); CREATININE 0.6 MG/DL (0.7-1.2); GLOMERULAR FILTRATION RATE 123; GLUCOSE 134 MG/DL (65-110); SODIUM 144 MEQ/L (134-144)
[2016-09-25 01:30] VITALS: BP 100/66; PULSE 83; RESP 18; TEMP 98.3; O2SAT 98
--- NOTE | 2016-09-25 01:30 | NUR ---
DEPART PT IS GIVEN DISMISSAL INSTRUCTIONS WITH VERBAL UNDERSTANDING. PT LEAVES [facility] TO ED REGITRATION DESK.
== END 2016-09-25 01:30 | disposition home or self-care (01) ==
LOC: ED 23:04
DX: E86.0 Dehydration (principal)
CPT/HCPCS: 80048; 96360; 99284; J7030

== ENCOUNTER 2016-10-03 23:14 | Emergency (ER) | payer OTHER, MEDICAID ==
[~2016-10-03] VITALS: Ht 160 cm; Wt 64.0 kg
[2016-10-03 23:18] VITALS: Ht 160 cm; Wt 64.0 kg
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
[2016-10-03] MEDS ORDERED: SERT25TA5 PO (23:31)
[2016-10-03] MEDS ORDERED: BUSP10TA3 PO (23:31)
--- NOTE | 2016-10-03 23:35 | NUR ---
PROVIDER DR. HOPE IN ROOM WITH PT.
[2016-10-04] MEDS: NORMAL SALINE 1,000 ML IV ONE (00:09)
[2016-10-04] MEDS: ONDANSETRON 4mg/2ml INJECTION IV ONE (00:09)
[2016-10-04 00:16] LABS: BASOPHILS % (AUTO) 0.3 % (0-2); EOSINOPHILS # (AUTO) 0.2 T/MM3 (0-0.5); EOSINOPHILS % (AUTO) 2.2 % (0-4); HCT - HEMATOCRIT 45.4 % (36-46); HGB - HEMOGLOBIN 15.6 GM/DL (12-16); IMMATURE GRANULOCYTE # (AUTO) 0.03 T/MM3 (0.00-0.03); IMMATURE GRANULOCYTE % (AUTO) 0.3 % (0.0-0.5); LYMPHOCYTES # (AUTO) 3.6 T/MM3 (1-4.8); LYMPHOCYTES % (AUTO) 34.8 % (23-45); MEAN CORPUSCULAR HGB 29.9 UUG (26-34); MEAN CORPUSCULAR HGB CONC(MCHC 34.4 GM/DL (31-37); MEAN PLATELET VOLUME 10.2 UM3 (9.4-12.4); MONOCYTES # (AUTO) 0.7 T/MM3 (0-0.8); MONOCYTES % (AUTO) 6.7 % (0-9.0); NEUTROPHILS #(AUTO)-ABSOLUTE 5.8 T/MM3 (1.8-7.7); NEUTROPHILS % (AUTO) 55.7 % (33-66); RED BLOOD COUNT 5.22 M/MM3 (4.00-5.20); WBC - WHITE BLOOD COUNT 10.3 T/MM3 (4.5-11.0)
[2016-10-04 00:27] LABS: BLOOD, URINE NEGATIVE (NEGATIVE); COLOR,URINE YELLOW (YELLOW); LEUKOCYTE ESTERASE ,URINE NEGATIVE (NEGATIVE); NITRITE,URINE NEGATIVE (NEGATIVE); UROBILINOGEN,URINE 0.2 EU/DL (NORMAL)
[2016-10-04 00:28] LABS: ALBUMIN 4.8 G/DL (3.5-5.0); ALBUMIN/GLOBULIN RATIO 1.5 RATIO (1.1-2.2); ALKALINE PHOSPHATASE 55 U/L (38-126); ALT (SGPT) 43 U/L (9-52); ANION GAP 15 MEQ/L (5-15); AST (SGOT) 22 U/L (14-36); BUN/CREATININE RATIO 25 RATIO (6-26); CALCIUM 9.8 MG/DL (8.4-10.2); CHLORIDE 105 MEQ/L (98-107); CO2 - CARBON DIOXIDE 26 MEQ/L (22-30); CREATININE 0.6 MG/DL (0.7-1.2); GLOMERULAR FILTRATION RATE 123; GLUCOSE 104 MG/DL (65-110); LIPASE 105 U/L (23-300); POTASSIUM 3.8 MEQ/L (3.6-5); SODIUM 146 MEQ/L (134-144); TOTAL PROTEIN 8.1 G/DL (6.3-8.2)
--- NOTE | 2016-10-04 00:35 | ERPDOC ---
Departure Disposition Decision Date: October 04, 2016 Disposition Decision Time: : Disposition: 01 DISCHARGED HOME, SELF-CARE Impression Impression Impression: Primary Impression: Gastroenteritis Additional Impression: Headache Severity: Moderate Condition: Improved Seen By: Physician only Referrals: HODA FERRARI MD (PCP) PORFIRIO MUNGUIA APRN (Family) Patient Instructions: Acute Headache (ED) Problems/Meds/Labs Reviewed?: Yes Medications reviewed and manag: Yes Additional Instructions: Please follow up with your primary care provider as needed. Follow up care ordered?: Yes Mental Status: Alert, Oriented HPI - Headache General Chief Complaint: Headache Stated Complaint: VOMITING/POSS ALLERGIC REACTION Time Seen by Provider: 00:19 HPI - Headache Initial Comments 26-year-old female presents with vomiting, diarrhea and headache. She was at work, using a lingo cleaner that she felt made her sick. She felt worse when she got home and developed vomiting and diarrhea immediately after getting into the bathtub. She had a headache while at work. She is , but uncertain of how far along she is. She had a positive test "a couple weeks ago", has not had a period for a year. She did have a Depo-Provera shot after her son was born, one year ago. She did not repeat the shot, but has not had a period since that time. She has not had the shot repeated over the last 8 months at all. No fever or chills, no sickness. Both of her children and her are not ill. Allergies: Coded Allergies: peanut (Verified Allergy, Unknown, 10/03/16) Past History Patient Surgical History epidural Past Medical History Respiratory: asthma Female: kidney stones Psychological: anxiety Surgical History Joint: knee Family History Family PMH: FOUND: [place], diabetes, hypertension, other Vaccines Hx Influenza Vaccination: Yes (03/29/15) Hx Pneumococcal Vaccination: No Hx Tetanus Diptheria: No Hx Tetanus, Diptheria, Pertuss: Yes (02/10/2014) Social History Smoking Status: Never smoker Does patient use chewing tobac: No Second Hand Exposure: No Substance Use Type: does not use Alcohol Intake: none Sexuality: male partner Household Members: family Record Review Pertinent history updated: Yes Review of Systems GI Upper Abdomen: see HPI Lower Abdomen: see HPI : see HPI Neurological General: see HPI All other Systems All Other Systems: Reviewed and Negative Physical Exam General General Nourishment: well nourished, well developed, no acute distress General Body Habitus: well groomed Vitals and Pain First Documented Vital Signs Date Time Temp Pulse Resp B/P Pulse Ox O2 Delivery O2 Flow Rate FiO2 10/03/16 23:18 98.1 96 14 125/84 98 Room Air Weight: Kilograms: 64.000 Height (feet): 5 Height (inches): 3.00 Triage Pain Scale: Normal Exams: Head: Normocephalic w/o trauma Chest/Resp: Clear all stewart, with good airflow, and symmetry bilaterally CV: Regular rate and rhythm, without murmur or gallop, Pulses 2+ all extremities, capillary refill, <2 seconds all ext., no pedal edema noted Abdomen: Bowel sounds positive, soft, non-tender, non-distended, no hepatosplenomegaly, masses or bruits noted Neurologic: Patient is alert, and oriented, cranial nerves, motor/sensory/ cerebellar, exams w/o gross deficits, to observation Psychiatric: Patient exhibits, appropriate attention, emotion and affect Differential Diagnoses Considering: Other (viral gastroenteritis, food poisoning, chemical reaction, , dehydration) Progress Results/Orders Orders Procedure Category Date Status Time Cbc W/Auto LAB 10/03/16 Complete Diff-Reflex Manual 23:39 Cmp - Comprehensive LAB 10/03/16 Complete Metabolic 23:39 Lipase LAB 10/03/16 Complete 23:39 Ua, Dip Wreflex LAB 10/03/16 Complete Microsc & Shake Maker 23:39 Iv Lock (Ed Only) EDM 10/03/16 Transmitted 23:39 Normal Saline (Normal PHA 10/03/16 Complete Saline Iv) 23:39 Ondansetron Inj PHA 10/03/16 Complete (Zofran) 23:45 Hcg-Quantitative LAB 10/03/16 Complete Ketorolac (Toradol) PHA 10/04/16 In Process 02:15 Lab Results Laboratory Tests Test 10/04/16 00:05 10/04/16 00:06 Urine Collection Type Cleancatch-midstream Urine Color Yellow Urine Turbidity Clear Urine pH 7.0 Urine Specific [place] 1.015 Urine Protein Negative Urine Glucose (UA) Negative Urine Ketones Negative Urine Blood Negative Urine Nitrite Negative Urine Bilirubin Negative Urine Urobilinogen 0.2EU/DL Urine Leukocyte Esterase Negative Urinalysis Comment Microscopic not ind. White Blood Count 10.3T/MM3 Red Blood Count 5.22M/MM3 Hemoglobin 15.6GM/DL Hematocrit 45.4% Mean Corpuscular Volume 87.0UM3 Mean Corpuscular Hemoglobin 29.9UUG Mean Corpuscular Hemoglobin Concent 34.4GM/DL RDW Standard Deviation 42.2FL Platelet Count 252T/MM3 Mean Platelet Volume 10.2UM3 Immature Granulocyte % (Auto) 0.3% Neutrophils (%) (Auto) 55.7% Lymphocytes (%) (Auto) 34.8% Monocytes (%) (Auto) 6.7% Eosinophils (%) (Auto) 2.2% Basophils (%) (Auto) 0.3% Absolute Immature Granulocyte (auto 0.03T/MM3 Absolute Neutrophils (auto) 5.8T/MM3 Absolute Lymphocytes (auto) 3.6T/MM3 Absolute Monocytes (auto) 0.7T/MM3 Absolute Eosinophils (auto) 0.2T/MM3 Absolute Basophils (auto) 0.0T/MM3 Turbidity < 20 Sodium Level 146MEQ/L Potassium Level 3.8MEQ/L Chloride Level 105MEQ/L Carbon Dioxide Level 26MEQ/L Anion Gap 15MEQ/L Blood Urea Nitrogen 15.0MG/DL Creatinine 0.6MG/DL Glomerular Filtration Rate Calc 123 BUN/Creatinine Ratio 25RATIO Glucose Level 104MG/DL Calculated Osmolality 282MOSM/KG Calcium Level 9.8MG/DL Total Bilirubin 0.70MG/DL Icterus Index < 2 Aspartate Amino Transf (AST/SGOT) 22U/L Alanine Aminotransferase (ALT/SGPT) 43U/L Alkaline Phosphatase 55U/L Total Protein 8.1G/DL Albumin 4.8G/DL Globulin 3.3G/DL Albumin/Globulin Ratio 1.5RATIO Lipase 105U/L Beta HCG, Quantitative < 2.39mIU/mL Chemistry Specimen Hemolysis < 15 Medications Current ED Medications Sodium Chloride (Normal Saline IV) 1,000 ml @ 1,000 mls/hr Q1H ONCE IV Last administered on 10/04/16 00:09; Start 10/03/16 at 23:39; Stop 10/04/16 at 00:38 ; Status DC Ondansetron HCl (Zofran) 4 mg O ONCE IV Last administered on 10/04/16 00:09; Start 10/03/16 at 23:45; Stop 10/03/16 at 23:46; Status DC Ketorolac Tromethamine (Toradol) 30 mg O ONCE IV ; Start 10/04/16 at 02:15; Stop 10/04/16 at 02:16 Progress Progress Patient had negative test. Labs otherwise were normal as well. I recommended that she follow-up with her primary care provider and discuss prescriptions. She was taking hydroxyzine and it worked well for her anxiety, but is not recommended if she is . Therefore she'll need to work out some other medication or get back on control. Toradol 30 mg given IV after test returned negative. Patient was also given 1 L normal saline IV and Zofran 4 mg IV. She is to follow-up with her primary care provider in regards to the headache with diarrhea and vomiting and chemical exposure as well. LUCHO HOPE MD October 04, 2016 00:35
--- NOTE | 2016-10-04 01:35 | NUR ---
PT PAIN STATUS/PROVIDER NOTIFIED PT STATES SHE NO LONGER HAS ANY NAUSEA BUT CONTINUES TO HAVE A HEADACHE. PT DOES NOT APPEAR TO BE IN ANY DISTRESS AT THIS TIME, CALL LIGHT IN REACH. PT REQUESTS PAIN MEDS. DR HOPE NOTIFIED.
[2016-10-04] MEDS: KETOROLAC 30mg/ml INJECTION IV ONE (02:24)
[2016-10-04 02:31] VITALS: BP 109/66; PULSE 66; RESP 14; TEMP 97.4; O2SAT 98
--- NOTE | 2016-10-04 02:31 | NUR ---
DISMISSAL PT IS RELEASED WITH DISMISSAL INSTRUCTIONS. PT VERBALIZED UNDERSTANDING OF INSTRUCTIONS AND DENIES ANY QUESTIONS. PT IS AMBULATORY OUT OF THE ED WITHOUT DIFFICULITES AT THIS TIME.
== END 2016-10-04 02:31 | disposition home or self-care (01) ==
LOC: ED 23:14
DX: K52.9 Noninfective gastroenteritis and colitis, unspecified (principal); R51 Headache; Z32.02 Encounter for pregnancy test, result negative
CPT/HCPCS: 80053; 81003; 83690; 84702; 85025; 96361; 96374; 96375; 99284; J1885; J2405; J7030